=== PATIENT | male | born 1945 | race Caucasian/White ===

== ENCOUNTER → 2017-01-23 | Outpatient (CLI) | payer MEDICARE, MEDICAID ==
[~2017-01-23] MED LIST: AMBIEN DPS10 MG PO; ASA325 MG PO; BACTRIM DS TAB1 EACH PO; BENADRYL-DPS25 MG PO; CALCIUM CARBON500 MG PO; CELEXA DPS20 MG PO; COLACE-DPS100 MG PO; COMPAZINE10 MG PO; DILANTIN100 MG PO; DOMEBORO TP; E-CREAM57 GM TP; FEOSOL-DPS325 MG PO; FLOMAX DPS0.4 MG PO; IMODIUM A-1 MG/7.5 M PO; IMODIUM DPS2 MG PO; KENALOG OINT. 015 GM TP; LASIX DPS40 MG PO; LEVAQUIN DPS500 MG PO; LOPRESSOR DPS50 MG PO; LYRICA75 MG PO; MAALOX DPS30 ML PO; MILK OF MAGNESI10 ML PO; MIRALAX DPS17 GM PO; MYSOLINE250 MG PO; NITROGLYCERIN0.4 MG PO; NIZORAL DPS30 GM TP; NIZORAL SHAMPO120 ML TP; NORCO 10-325 T1 EACH PO; NORCO 5-325 TA1 EACH PO; ONEXTON 1.2%-33.5 GM TP; PEPCID DPS20 MG PO; POTASSIUM CHLO20 ME2 PO; REMERON DPS15 MG PO; SEROQUEL XR50 MG PO; SUDAFED 12 HOU120 MG PO; SUDAFED DPS30 MG PO; SURFAK DPS240 MG PO; TYLENOL DPS325 MG PO; TYLENOL EXTRA500 M1 PO; VICKS VAPORUB170 GM TP; XANAX DPS0.5 MG PO
== END | disposition home or self-care (01) ==
LOC: RAD.S 01-17 15:41 → PTH.S 09:00 → RAD.S 09:08
DX: C00.1 Malignant neoplasm of external lower lip (principal); R91.8 Other nonspecific abnormal finding of lung field; R59.0 Localized enlarged lymph nodes

== ENCOUNTER → 2017-02-16 | Outpatient (CLI) | payer MEDICARE, MEDICAID | END | disposition home or self-care (01) | LOC: CARD 09:37 | DX: Z01.818 Encounter for other preprocedural examination (principal); R94.31 Abnormal electrocardiogram [ECG] [EKG] ==